=== PATIENT | female | born 1970 | race Caucasian/White ===

== ENCOUNTER 2020-02-26 13:47 | Outpatient (CLI) | payer OTHER, SELFPAY ==
--- NOTE | ~2020-02-26 | US_ITS ---
EXAMINATION: US thyroid DATE: 02/26/2020 14:13 INDICATION: Thyroid cancer. TECHNIQUE: Multiple ultrasound images of the thyroid were obtained. COMPARISON: Ultrasound 05/26/2018 FINDINGS: The thyroid is absent. No lymphadenopathy is identified. IMPRESSION: 1. Absent thyroid. No lymphadenopathy. Reviewed, dictated and finalized at location A.
[2020-02-26 15:20] LABS: Albumin Level 3.9 g/dL (3.5-5.1); Blood Urea Nitrogen 18 mg/dL (7-17); Calcium 10.4 mg/dL (8.4-10.2); Carbon Dioxide 33 mmol/L (22-30); Chloride 100 mmol/L (98-107); Estimated Glomerular Filt Rate 43; Glucose 86 mg/dL (65-105); Magnesium 1.8 mg/dL (1.6-2.3); Phosphorus 3.4 mg/dL (2.5-4.5); Potassium 3.6 mmol/L (3.4-5.0); Sodium 136 mmol/L (137-145)
[2020-02-26 16:07] LABS: Free T4 Free Thyroxine 1.35 ng/mL (0.78-2.19); Vitamin D 25 Hydroxy 79.8 ng/mL
[2020-02-28 01:58] LABS: Thyroglobulin <0.1 ng/mL (2.8-40.9); Thyroglobulin Antibodies <1 IU/mL (<=1)
[2020-02-28 05:04] LABS: Triiodothyronine T3 Free 2.5 pg/mL (2.3-4.2)
== END 2020-02-26 13:48 | disposition home or self-care (01) ==
PROVIDERS: PCP Internal Medicine; Visit Provider Internal Medicine Endocrinology, Diabetes & Metabolism
DX: C73 Malignant neoplasm of thyroid gland (principal); E83.51 Hypocalcemia; E20.9 Hypoparathyroidism, unspecified; E04.9 Nontoxic goiter, unspecified
CPT/HCPCS: 36415; 76536; 80069; 82306; 83735; 84432; 84439; 84443; 84481; 86800

== ENCOUNTER 2020-09-30 16:54 | Outpatient (CLI) | payer OTHER, SELFPAY ==
[2020-09-30 17:26] LABS: Anion Gap 6 mmol/L (8-16); Blood Urea Nitrogen 29 mg/dL (7-17); Calcium 10.6 mg/dL (8.4-10.2); Carbon Dioxide 34 mmol/L (22-30); Chloride 99 mmol/L (98-107); Estimated Glomerular Filt Rate 47; Glucose 96 mg/dL (65-105); Potassium 3.7 mmol/L (3.4-5.0); Sodium 139 mmol/L (137-145)
[2020-09-30 17:58] LABS: Thyroid Stimulating Hormone 0.309 uIU/mL (0.465-4.680)
[2020-09-30 18:10] LABS: Free T4 Free Thyroxine 1.23 ng/mL (0.78-2.19); Vitamin D 25 Hydroxy 73.8 ng/mL
[2020-10-06 12:47] LABS: FSH 114.3 mIU/mL (***)
[2020-10-07 05:58] LABS: Calcium/Creatinine Ratio, Ur 189 mg/g creat (10-320); Urine Calcium, Random 9.2 mg/dL (***); Urine Creatinine, Random 49 mg/dL (20-275)
== END 2020-09-30 16:55 | disposition home or self-care (01) ==
LOC: ANHLAB 16:57
PROVIDERS: Referring Provider Obstetrics & Gynecology; Visit Provider Internal Medicine Endocrinology, Diabetes & Metabolism
DX: C73 Malignant neoplasm of thyroid gland (principal); E03.9 Hypothyroidism, unspecified; E20.8 Other hypoparathyroidism; E83.51 Hypocalcemia; Z78.0 Asymptomatic menopausal state
CPT/HCPCS: 36415; 80048; 82306; 82310; 82570; 82607; 82670; 83001; 84439; 84443

== ENCOUNTER 2020-11-22 08:59 | Outpatient (CLI) | payer OTHER, SELFPAY ==
[2020-11-22 09:25] LABS: Anion Gap 2 mmol/L (8-16); Blood Urea Nitrogen 24 mg/dL (7-17); Calcium 8.7 mg/dL (8.4-10.2); Carbon Dioxide 36 mmol/L (22-30); Chloride 101 mmol/L (98-107); Estimated Glomerular Filt Rate 52; Glucose 76 mg/dL (65-105); Potassium 3.8 mmol/L (3.4-5.0); Sodium 139 mmol/L (137-145)
[2020-11-22 09:54] LABS: Thyroid Stimulating Hormone 0.245 uIU/mL (0.465-4.680)
[2020-11-22 11:08] LABS: Free T4 Free Thyroxine 1.33 ng/mL (0.78-2.19)
== END 2020-11-22 09:00 | disposition home or self-care (01) ==
PROVIDERS: PCP Internal Medicine; Visit Provider Internal Medicine Endocrinology, Diabetes & Metabolism
DX: C73 Malignant neoplasm of thyroid gland (principal); E03.9 Hypothyroidism, unspecified; E20.8 Other hypoparathyroidism
CPT/HCPCS: 36415; 80048; 84439; 84443

== ENCOUNTER 2021-03-28 16:04 | Outpatient (CLI) | payer OTHER, SELFPAY ==
[2021-03-28 16:40] LABS: Anion Gap 7 mmol/L (8-16); Blood Urea Nitrogen 19 mg/dL (7-17); Calcium 9.2 mg/dL (8.4-10.2); Carbon Dioxide 30 mmol/L (22-30); Chloride 102 mmol/L (98-107); Estimated Glomerular Filt Rate 47; Glucose 107 mg/dL (65-105); Magnesium 1.6 mg/dL (1.6-2.3); Potassium 3.5 mmol/L (3.4-5.0); Sodium 139 mmol/L (137-145)
[2021-03-28 17:11] LABS: Thyroid Stimulating Hormone 0.205 uIU/mL (0.465-4.680)
[2021-03-28 17:42] LABS: Free T4 Free Thyroxine 1.35 ng/mL (0.78-2.19)
== END 2021-03-28 16:05 | disposition home or self-care (01) ==
LOC: ANHLAB 16:06
PROVIDERS: PCP Internal Medicine; Visit Provider Internal Medicine Endocrinology, Diabetes & Metabolism
DX: C73 Malignant neoplasm of thyroid gland (principal); E03.9 Hypothyroidism, unspecified; E20.8 Other hypoparathyroidism
CPT/HCPCS: 36415; 80048; 82306; 83735; 84439; 84443

== ENCOUNTER 2021-05-15 15:19 | Outpatient (CLI) | payer OTHER, SELFPAY ==
--- NOTE | ~2021-05-15 | MM_ITS ---
EXAMINATION: screening [facility] BI w brinda HISTORY: Screening mammogram TECHNIQUE: Craniocaudal and mediolateral oblique 3-D tomosynthesis images were obtained and synthetic 2-D images were generated. CAD analysis was submitted and interpreted. COMPARISON: 08/21/2019, 03/04/2017, 02/21/2017 BREAST PARENCHYMAL COMPOSITION: The breasts are heterogeneously dense, which may obscure small masses . FINDINGS: There is stable focal asymmetry in the upper outer quadrant of the right breast, consistent with a benign finding. There is no evidence of suspicious mass, calcification, or architectural dist ortion to suggest malignancy in either breast. There has been no suspicious interval change. IMPRESSION: 1. No mammographic evidence of malignancy. 2. Recommend routine screening mammography in one year. BI-RADS Category 2: Benign finding(s). Reviewed, dictated and finalized at location A.
== END 2021-05-15 15:20 | disposition home or self-care (01) ==
LOC: ANHIMG 15:42
PROVIDERS: PCP Internal Medicine; Visit Provider Obstetrics & Gynecology
DX: Z12.31 Encounter for screening mammogram for malignant neoplasm of breast (principal)
CPT/HCPCS: 77063; 77067

== ENCOUNTER 2021-07-01 13:18 | Outpatient (CLI) | payer OTHER, SELFPAY ==
[2021-07-01 13:57] LABS: Alanine Aminotransferase 19 U/L (4-35); Albumin Level 4.1 g/dL (3.5-5.1); Alkaline Phosphatase 52 U/L (38-126); Anion Gap 7 mmol/L (8-16); Aspartate Amino Transferase 26 U/L (14-36); Bilirubin,Total 0.4 mg/dL (0.2-1.3); Blood Urea Nitrogen 17 mg/dL (7-17); Calcium 9.1 mg/dL (8.4-10.2); Carbon Dioxide 29 mmol/L (22-30); Chloride 104 mmol/L (98-107); Estimated Glomerular Filt Rate 52; Glucose 107 mg/dL (65-110); Potassium 3.9 mmol/L (3.4-5.0); Sodium 140 mmol/L (137-145)
[2021-07-01 14:14] LABS: Free T4 Free Thyroxine 1.05 ng/mL (0.78-2.19)
== END 2021-07-01 13:19 | disposition home or self-care (01) ==
PROVIDERS: PCP Internal Medicine; Visit Provider Internal Medicine Endocrinology, Diabetes & Metabolism
DX: C73 Malignant neoplasm of thyroid gland (principal); E03.9 Hypothyroidism, unspecified; E20.8 Other hypoparathyroidism; Z78.0 Asymptomatic menopausal state
CPT/HCPCS: 36415; 80053; 84439; 84443

== ENCOUNTER 2021-09-22 14:16 | Outpatient (CLI) | payer OTHER, SELFPAY ==
[2021-09-22 15:21] LABS: Free T4 Free Thyroxine 1.13 ng/mL (0.78-2.19)
== END 2021-09-22 14:17 | disposition home or self-care (01) ==
LOC: ANHLAB 14:18
PROVIDERS: PCP Internal Medicine; Visit Provider Internal Medicine Endocrinology, Diabetes & Metabolism
DX: C73 Malignant neoplasm of thyroid gland (principal); E03.9 Hypothyroidism, unspecified
CPT/HCPCS: 36415; 84439; 84443

== ENCOUNTER 2021-10-11 07:27 | Outpatient (CLI) | payer OTHER, SELFPAY ==
[2021-10-11 07:47] LABS: Basophils Absolute Auto 0.1 K/mm3 (0.0-0.1); Basophils Percent Auto 1.5 % (0.2-1.2); Eosinophils Absolute Auto 0.3 K/mm3 (0-0.3); Eosinophils Percent Auto 7.4 % (0-4.4); Hematocrit 42.8 % (37.0-47.0); Hemoglobin 14.5 g/dL (12.0-15.0); Lymphocytes Absolute Auto 1.48 K/mm3 (0.9-3.2); Lymphocytes Percent Auto 36.6 % (18.3-44.2); Mean Corpuscular HGB Conc 33.9 g/dl (32-36); Mean Corpuscular Hemoglobin 31.4 pg (26-34); Mean Corpuscular Volume 92.6 fl (80-100); Mean Platelet Volume 9.4 fl (7.4-10.4); Monocytes Absolute Auto 0.4 K/mm3 (0.1-0.6); Monocytes Percent Auto 8.7 % (2.6-8.5); Neutrophils Absolute Auto 1.9 K/mm3 (1.3-6.7); Neutrophils Percent Auto 45.8 % (45.5-73.1); Platelet Count Result 277 k/mm3 (150-375); Red Blood Count 4.62 M/mm3 (4.2-5.4); Red Cell Distribution Width 12.1 % (11.5-14.5)
[2021-10-11 08:01] LABS: Alanine Aminotransferase 20 U/L (4-35); Albumin Level 4.2 g/dL (3.5-5.1); Alkaline Phosphatase 48 U/L (38-126); Anion Gap 6 mmol/L (8-16); Aspartate Amino Transferase 30 U/L (14-36); Bilirubin,Total 0.5 mg/dL (0.2-1.3); Blood Urea Nitrogen 13 mg/dL (7-17); Calcium 8.6 mg/dL (8.4-10.2); Carbon Dioxide 32 mmol/L (22-30); Chloride 102 mmol/L (98-107); Cholesterol 234 mg/dL (0-200); Estimated Glomerular Filt Rate 52; Glucose 97 mg/dL (65-110); HDL Direct 57 mg/dL; Potassium 4.4 mmol/L (3.4-5.0); Sodium 140 mmol/L (137-145); Triglycerides 50 mg/dL (<150)
[2021-10-11 08:12] LABS: LDL Cholesterol Direct 150 mg/dL
[2021-10-11 08:45] LABS: Hemoglobin A1C 5.2 % (<5.7)
[2021-10-11 11:30] LABS: Thyroid Stimulating Hormone Reflex 0.336 uIU/mL (0.465-4.68)
[2021-10-11 22:04] LABS: Free T4 Free Thyroxine Reflex 1.23 ng/dL (0.78-2.19)
[2021-10-12 00:26] LABS: Total Triiodothyronine (T3) 1.41 NG/ML (0.97-1.69)
== END 2021-10-11 07:28 | disposition home or self-care (01) ==
LOC: ANHLAB 07:29
PROVIDERS: PCP Internal Medicine; Visit Provider Obstetrics & Gynecology
DX: Z00.00 Encounter for general adult medical examination without abnormal findings (principal); Z12.31 Encounter for screening mammogram for malignant neoplasm of breast
CPT/HCPCS: 36415; 80053; 80061; 82306; 82607; 83036; 84439; 84443; 84480; 85025

== ENCOUNTER 2021-11-28 17:18 | Outpatient (CLI) | payer OTHER, SELFPAY ==
[2021-11-28 18:29] LABS: Anion Gap 9 mmol/L (8-16); Blood Urea Nitrogen 20 mg/dL (7-17); Calcium 8.4 mg/dL (8.4-10.2); Carbon Dioxide 30 mmol/L (22-30); Chloride 99 mmol/L (98-107); Estimated Glomerular Filt Rate 52; Glucose 114 mg/dL (65-110); Potassium 3.7 mmol/L (3.4-5.0); Sodium 138 mmol/L (137-145)
[2021-11-28 18:33] LABS: Magnesium 1.9 mg/dL (1.6-2.3)
[2021-11-28 19:12] LABS: Free T4 Free Thyroxine 1.17 ng/mL (0.78-2.19)
[2021-11-28 19:54] LABS: Total Triiodothyronine (T3) 0.97 NG/ML (0.97-1.69)
== END 2021-11-28 17:19 | disposition home or self-care (01) ==
PROVIDERS: PCP Internal Medicine; Referring Provider Obstetrics & Gynecology; Visit Provider Internal Medicine Endocrinology, Diabetes & Metabolism
DX: C73 Malignant neoplasm of thyroid gland (principal); R74.9 Abnormal serum enzyme level, unspecified; E03.9 Hypothyroidism, unspecified; E20.8 Other hypoparathyroidism; M62.89 Other specified disorders of muscle
CPT/HCPCS: 36415; 80048; 83735; 84439; 84443; 84480

== ENCOUNTER 2022-01-14 20:09 | Emergency (ER) | payer OTHER, SELFPAY ==
--- NOTE | ~2022-01-14 | XR_ITS ---
EXAMINATION: XR ankle LT min 3V DATE: 01/14/2022 20:32 INDICATION: Left ankle pain TECHNIQUE: Anteroposterior, lateral, mortise, and additional oblique view of the ankle were obtained. COMPARISON: None. FINDINGS: Ankle soft tissue swelling is present. There is no fracture, dislocation, or subluxation. IMPRESSION: 1. Ankle soft tissue swelling without acute osseous abnormality. Reviewed, dictated and finalized at location F. R BENDER
[2022-01-14 20:14] VITALS: BP 142/98; PULSE 68; RESP 22; TEMP 36.5; O2SAT 100
[2022-01-14] MEDS: HYDROcodone/acetaminophen (*CRX) 5-325 MG TABLET 1 TAB PO (20:20)
--- NOTE | 2022-01-14 20:26 | ED.LOWEXIN ---
HPI - Extremity Injury (Lower) General Chief Complaint: Extremity Injury, Lower Stated Complaint: left ankle injury-twisted ankle Time Seen by Provider: 01/14/22 20:16 History of Present Illness HPI Narrative: Patient is a 51-year-old female who presents ER with left ankle pain. Tripped over the lip of a rug. Began having some mild pain was still able to walk. Pain located by the lateral malleolus. No 50 minutes pain became currently intense and cannot walk. She reports little tingling in her toes but has range of motion. She did not fall strike her head. No additional concerns. Related Data Home Medications Medication Instructions Recorded Confirmed magnesium oxide 250 mg PO TID tablet 08/22/20 11/06/21 mecobalamin (vitamin B12) 1,000 2,500 mcg PO DAILY tablet 08/22/20 11/06/21 mcg chewable tablet rhubarb root extract 4 mg tablet mg PO 03/23/21 11/06/21 biotin 1 mg tablet 1 mg PO DAILY 11/06/21 11/06/21 calcium carbonate 600 mg-vitamin 1 tablet PO DAILY tablet 11/06/21 11/06/21 D3 5 mcg (200 unit) tablet Allergies Allergy/AdvReac Type Severity Reaction Status Date / Time No Known Allergies Allergy Unverified 01/30/19 07:47 Review of Systems Musculoskeletal: Musculoskeletal: Reports arthralgias, Reports joint swelling and Denies muscle cramps Neurologic: Denies syncope, Denies focal weakness and Reports numbness PMFSH Past Medical History Medical History (Updated 01/14/22 @ 21:14 by Gerald Malloy MD) Ovarian cyst Thyroid cancer Surgical History Surgical History H/O prior ablation treatment H/O thyroidectomy History of appendectomy Hx of tonsillectomy Family History Family History Mother Family history of thyroid disease Family history of obesity Sibling Family history of thyroid disease Family history of diabetes mellitus in first degree relative Diabetes mellitus Father Hypertension Social History Social History Smoking status: Never smoker Second hand tobacco smoke exposure: No Alcohol intake: never Exam Narrative: GENERAL: Well-appearing, well-nourished, and in no acute distress. HEAD: Normocephalic, atraumatic. HEART: Regular rate and rhythm. Normal peripheral pulses. EXTREMITIES: Normal range of motion. No edema. No palpation of the lateral malleolus of the left ankle. No swelling or deformity. No tenderness over the Achilles tendon which is intact. No fifth metatarsal tenderness or swelling. Normal dorsalis pedis pulses and posterior tibial pulses. Sharp touch intact in left foot. SKIN: Warm, dry, no rash. NEURO: No focal deficits. Alert and oriented x3. PSYCH: Normal mood and affect. Course Course Emergency Course: Patient informed of results. Nurse will apply an See wrap. Crutch training will be provided. Discharge home. Vital Signs Vital signs: Vital Signs Temperature 97.7 F 01/14/22 20:14 Pulse Rate 68 01/14/22 20:14 Respiratory Rate 22 H 01/14/22 20:14 Blood Pressure 142/98 H 01/14/22 20:14 Pulse Oximetry 100 01/14/22 20:14 Temperature 97.7 F 01/14/22 20:14 Pulse Rate 68 01/14/22 20:14 Respiratory Rate 22 H 01/14/22 20:14 Blood Pressure 142/98 H 01/14/22 20:14 Pulse Oximetry 100 01/14/22 20:14 MDM - Extremity Injury (Lower) Imaging Data Radiologist's impression: ITS Impressions Ankle X-Ray 01/14/22 20:42 IMPRESSION: 1. Ankle soft tissue swelling without acute osseous abnormality. Discharge Plan Discharge Clinical Impression: Ankle sprain Patient Disposition: Home, Self-Care Condition: Stable Instructions: Ankle Sprain (ED), P.R.I.C.E. Treatment (ED) Additional Instructions: Return the ER if you suffer new injury, you have chest pain or shortness of breath, you have a red/swollen leg, you have addition
[2022-01-14 21:29] VITALS: BP 132/88; PULSE 77; RESP 18; O2SAT 98
== END 2022-01-14 21:30 | disposition home or self-care (01) ==
LOC: ANHED 21:15
PROVIDERS: Emergency Provider Emergency Medicine; PCP Internal Medicine
DX: S93.402A Sprain of unspecified ligament of left ankle, initial encounter (principal); Z85.850 Personal history of malignant neoplasm of thyroid; E89.0 Postprocedural hypothyroidism; W22.8XXA Striking against or struck by other objects, initial encounter
CPT/HCPCS: 73610; 99283; A9270

== ENCOUNTER → 2022-04-16 12:49 | Outpatient (CLI) | payer OTHER, SELFPAY ==
--- NOTE | ~2022-04-16 | US_ITS ---
EXAMINATION: US transvaginal DATE: 04/16/2022 13:42 INDICATION: Secondary ovarian failure Comparison:No prior studies for comparison. TECHNIQUE: Multiple transabdominal and endovaginal sonographic images of the pelvis performed. FINDINGS: The uterus measures 6.8 x 3.9 x 5.7 cm. There are multiple uterine fibroids in the myometri um with associated calcifications. Largest discrete fibroid measures 2 cm greatest dimension. The end ometrial complex measures 6 mm. The right ovary measures 1.3 x 1 x 1.6 cm and the left ovary measures 1.9 x 1.7 x 2.3 cm. There are small follicles in each ovary. Normal doppler signal in both ovaries. There is no free fluid in the pelvis. There are no abnormal masses seen on either side. IMPRESSION: 1. Uterine fibroids, largest measuring up to 2 cm maximum dimension. Reviewed, dictated and finalized at location A.
== END ==
PROVIDERS: PCP Internal Medicine
DX: E28.39 Other primary ovarian failure (principal); N95.9 Unspecified menopausal and perimenopausal disorder; N85.2 Hypertrophy of uterus; D25.9 Leiomyoma of uterus, unspecified
CPT/HCPCS: 76830

== ENCOUNTER 2023-02-21 07:36 | Outpatient (CLI) | payer OTHER, SELFPAY ==
--- NOTE | ~2023-02-21 | MM_ITS ---
EXAMINATION: MM screening [facility] BI w brinda HISTORY: Screening TECHNIQUE: Craniocaudal and mediolateral oblique 3-D tomosynthesis images were obtained and synthetic 2-D images were generated. CAD analysis was submitted and interpreted. COMPARISON: Comparison to multiple prior studies sequentially, with oldest reviewed study dated 01/26. BREAST PARENCHYMAL COMPOSITION: The breasts are heterogeneously dense, which may obscure small masses . FINDINGS: There is no evidence of suspicious mass, calcification, or architectural distortion to sugg est malignancy in either breast. There has been no suspicious interval change. IMPRESSION: 1. No mammographic evidence of malignancy. 2. Recommend routine screening mammography in one year. BI-RADS Category 1: Negative Reviewed, dictated and finalized at location A.
== END 2023-02-21 07:37 | disposition home or self-care (01) ==
LOC: ANHIMG 07:39
PROVIDERS: PCP Family Medicine; Visit Provider Obstetrics & Gynecology
DX: Z12.31 Encounter for screening mammogram for malignant neoplasm of breast (principal)
CPT/HCPCS: 77063; 77067

== ENCOUNTER 2023-09-13 00:38 | Day surgery (SDC) | payer OTHER, SELFPAY ==
[2023-09-04 13:38] VITALS: BMI 25.7
--- NOTE | 2023-09-11 15:48 | P.HP_ITS ---
History of Present Illness History of Present Illness Consent: Risks, benefits, and alternatives have been discussed and questions answered. Patient agrees to proceed with procedure. Chief complaint: hx colon polyps Narrative: Jyoti Burnham is a 52 year old female referred for colon cancer screen. She has a history of polyps, 2 polyps were removed 4 years ago Review of Systems Review of Systems: All systems reviewed & are unremarkable except as noted in HPI and below PMFSH Past Medical History Medical History Acute sinusitis Breast mass, right Ovarian cyst Renal insufficiency Thyroid cancer URI (upper respiratory infection) Surgical History Surgical History H/O prior ablation treatment H/O thyroidectomy History of appendectomy Hx of tonsillectomy Family History Family History Mother Family history of thyroid disease Family history of obesity Sibling Family history of thyroid disease Family history of diabetes mellitus in first degree relative Diabetes mellitus Father Hypertension Social History Social History Smoking status: Never smoker Second hand tobacco smoke exposure: No Alcohol intake: never Substance use: never Living arrangements: with family Occupation/Education: occupation 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 Meds Home Medications and Allergies Home Medications Medication Instructions Recorded Confirmed Type calcium carbonate 600 mg-vitamin 1 tablet PO DAILY 11/06/21 09/04/23 History D3 5 mcg (200 unit) tablet Synthroid 100 mcg tablet See Rx Instructions .Route 05/28/22 09/04/23 Rx (levothyroxine) .COMPLEX #90 tabs albuterol sulfate 90 mcg/actuation 1 - 2 inh inhalation Q4-6H PRN 11/09/22 09/04/23 Rx aerosol inhaler shortness of breath or wheezing #8.5 grams medroxyprogesterone 09/04/23 History calcitriol 0.25 mcg capsule 0.25 mcg PO DAILY #60 caps 09/10/23 Rx (Rocaltrol) Allergies Allergy/AdvReac Type Severity Reaction Status Date / Time No Known Allergies Allergy Verified 09/13/23 06:17 Exam Resp: Auscultation: clear to auscultation bilaterally Cardio: Rate: regular rate Rhythm: regular rhythm GI: GI Palp: Yes Soft to palpation and No Tenderness to palpation present (GI) Assessment and Plan Assessment and plan (1) Colon cancer screening: Code(s): Z12.11 - Encounter for screening for malignant neoplasm of colon Status: Acute Assessment and Plan: Colonoscopy with possible biopsy or polypectomy or cautery or injection of substances.
[2023-09-13 06:19] VITALS: BP 127/67; PULSE 69; RESP 18; TEMP 36.3; O2SAT 100; BMI 25.1
[2023-09-13] MEDS: LACTATED RINGERS 1,000 ML 150 ML IV CONT (06:22)
--- NOTE | 2023-09-13 06:59 | WPDANESEPPF ---
Anes - Initial Pre Proc Eval Procedure: Operation Date: 09/13/23 07:30 Proposed Procedures p Colonoscopy - Reji Becerra MD Date/Time: 09/13/23 06:59 Surgeon: Reji Becerra MD Pre Op Diagnosis: hx colon polyps Patient Data Age: 52 Gender: F Height: 1.68 m Weight: 70.7 kg Last Vital Signs Temp 97.3 F L 09/13/23 06:19 Pulse 69 09/13/23 06:19 Resp 18 09/13/23 06:19 BP 127/67 09/13/23 06:19 Pulse Ox 100 09/13/23 06:19 O2 Del Method Room Air 09/13/23 06:19 Allergies Allergy/AdvReac Type Severity Reaction Status Date / Time No Known Allergies Allergy Verified 09/13/23 06:17 Home Medications Medication Instructions Recorded Confirmed Type calcium carbonate 600 mg-vitamin 1 tablet PO DAILY 11/06/21 09/04/23 History D3 5 mcg (200 unit) tablet Synthroid 100 mcg tablet See Rx Instructions .Route 05/28/22 09/04/23 Rx (levothyroxine) .COMPLEX #90 tabs albuterol sulfate 90 mcg/actuation 1 - 2 inh inhalation Q4-6H PRN 11/09/22 09/04/23 Rx aerosol inhaler shortness of breath or wheezing #8.5 grams medroxyprogesterone 09/04/23 History calcitriol 0.25 mcg capsule 0.25 mcg PO DAILY #60 caps 09/10/23 Rx (Rocaltrol) Patient hx anesthesia problems: none Family hx anesthesia problems: none Results Review: All pre-operative results and documents have been reviewed as part of the pre-operative evaluation. [facility] Past Medical History Medical History (Updated 09/11/23 @ 15:48 by Reji Becerra MD) Acute sinusitis Breast mass, right Ovarian cyst Renal insufficiency Thyroid cancer URI (upper respiratory infection) Surgical History Surgical History H/O prior ablation treatment H/O thyroidectomy History of appendectomy Hx of tonsillectomy Family History Family History Mother Family history of thyroid disease Family history of obesity Sibling Family history of thyroid disease Family history of diabetes mellitus in first degree relative Diabetes mellitus Father Hypertension Social History Social History (Updated 10/10/22 @ 14:07 by Guillermina Wellington [facility]) Smoking status: Never smoker Second hand tobacco smoke exposure: No Alcohol intake: never Substance use: never Living arrangements: with family Occupation/Education: occupation 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 Informed Consent: The patient's anesthetic plan and its attendant risks and benefits were discussed with the patient/family/POA. Questions were solicited and answers provided to the satisfaction of the patient/family/POA.
[2023-09-13 07:45] VITALS: BP 104/60; PULSE 62; RESP 28; O2SAT 100
[2023-09-13 07:55] VITALS: BP 110/63; PULSE 63; RESP 19; O2SAT 98
[2023-09-13 08:05] VITALS: BP 108/73; PULSE 61; RESP 21; O2SAT 100
== END 2023-09-13 08:13 | disposition home or self-care (01) ==
PROVIDERS: PCP Family Medicine; Visit Provider Internal Medicine Gastroenterology
PROC: 0DJD8ZZ Inspection of Lower Intestinal Tract, Via Natural or Artificial Opening Endoscopic (ICD-10-PCS; CPT 45378; principal; 2023-09-13 07:30)
DX: Z12.11 Encounter for screening for malignant neoplasm of colon (principal); Z86.010 Personal history of colon polyps; E89.0 Postprocedural hypothyroidism; Z79.51 Long term (current) use of inhaled steroids; Z85.850 Personal history of malignant neoplasm of thyroid
CPT/HCPCS: 45378; J2001; J2704; J7120

== ENCOUNTER 2023-10-22 15:04 | Outpatient (CLI) | payer OTHER, SELFPAY ==
[2023-10-22 15:45] LABS: Alanine Aminotransferase 15 U/L (6-35); Albumin Level 4.4 g/dL (3.5-5.1); Alkaline Phosphatase 67 U/L (38-126); Anion Gap 12 mmol/L (8-16); Aspartate Amino Transferase 24 U/L (14-36); Bilirubin,Total 0.5 mg/dL (0.2-1.3); Blood Urea Nitrogen 24 mg/dL (7-17); Calcium 7.7 mg/dL (8.4-10.2); Carbon Dioxide 25 mmol/L (22-30); Chloride 100 mmol/L (98-107); Estimated Glomerular Filt Rate > 60; Glucose 91 mg/dL (65-110); Potassium 3.7 mmol/L (3.4-5.0); Sodium 137 mmol/L (137-145)
[2023-10-22 15:57] LABS: Parathyroid Intact 11.6 pg/mL (7.5-53.5)
[2023-10-22 16:16] LABS: Thyroid Stimulating Hormone 0.017 uIU/mL (0.465-4.680)
[2023-10-22 18:12] LABS: Free T4 Free Thyroxine 0.66 ng/mL (0.78-2.19); Vitamin D 25 Hydroxy 76.5 ng/mL
[2023-10-25 16:17] LABS: Ionized Calcium 4.4 mg/dL (4.7-5.5)
[2023-10-27 04:25] LABS: Thyroglobulin <0.1 ng/mL (2.8-40.9); Thyroglobulin Antibodies <1 IU/mL (<=1)
== END 2023-10-22 15:05 | disposition home or self-care (01) ==
PROVIDERS: PCP Family Medicine; Visit Provider Internal Medicine
DX: E20.9 Hypoparathyroidism, unspecified (principal); C73 Malignant neoplasm of thyroid gland; E03.9 Hypothyroidism, unspecified
CPT/HCPCS: 36415; 80053; 82306; 82330; 83970; 84432; 84439; 84443; 86800

== ENCOUNTER 2023-10-31 09:06 | Outpatient (CLI) | payer OTHER, SELFPAY ==
--- NOTE | ~2023-10-31 | US_ITS ---
EXAMINATION: US thyroid DATE: 10/31/2023 09:33 INDICATION: Thyroid cancer. TECHNIQUE: Multiple ultrasound images of the thyroid were obtained. COMPARISON: Ultrasound 02/26/2020 FINDINGS: The thyroid is absent. There is no lymphadenopathy. IMPRESSION: 1. Absent thyroid. No lymphadenopathy. Reviewed, dictated and finalized at location A. ADJUSTER
== END 2023-10-31 09:07 | disposition home or self-care (01) ==
LOC: ANHIMG 09:08
PROVIDERS: PCP Family Medicine; Visit Provider Internal Medicine
DX: C73 Malignant neoplasm of thyroid gland (principal); E03.9 Hypothyroidism, unspecified; E20.9 Hypoparathyroidism, unspecified
CPT/HCPCS: 76536

== ENCOUNTER 2024-12-17 13:41 | Emergency (ER) | payer OTHER, SELFPAY ==
--- NOTE | ~2024-12-17 | CT_ITS ---
EXAMINATION: CTA BRAIN/CAROTID DATE: 12/17/2024 14:37 INDICATION: Injured ischemic episode with altered mental status TECHNIQUE: Computed tomographic angiography (CTA) of the head and neck was performed with 100 mL Omni paque-350 intravenous contrast. Multiplanar reconstructions and maximum intensity projection 3D-recon structions of the carotid arteries and of the intracranial arteries were created by the technologist on a separate workstation. Precontrast CT of the head was also obtained. Automated exposure control and iterative reconstruction technique were employed.The dose-length product was 1623.24 mGy-cm. COMPARISON: None. FINDINGS: Carotid arteries: Visualized aortic arch degree of vessel arising from the arch are normal in caliber with no evident a therosclerotic plaque or dissection. There is no evident atherosclerotic plaque with 0% stenosis of t he right and left carotid bulbs relative to normal distal artery lumen diameter (NASCET criteria). Vi sualized upper lungs are clear. Cervical soft tissues are unremarkable. Mild cervical spondylosis. Head: No acute intracranial hemorrhage, acute infarction or abnormal extra axial fluid collection. Ventricl es are normal and symmetric. No mass/mass effect. No abnormally enhancing brain lesions on the postco ntrast imaging. The orbits, paranasal sinuses and mastoid air cells are normal. Intracranial arteries Left vertebral artery is mildly dominant. Minimal amount of nonhemodynamically significant atheroscle rotic plaque at the left carotid siphon. There is no hemodynamically significant stenosis in the vert ebral, basilar and internal carotid arteries. There are no aneurysms identified. Both A1 and P1 segm ents are patent. Cerebral arterial arborization appears symmetric. Is also a patent anterior communi cating artery. IMPRESSION: 1. No evident atherosclerotic plaque with 0% stenosis of the right and left carotid bulbs relative to normal distal artery lumen diameter (NASCET criteria). 2. Unremarkable cerebral CT angiogram with no hemodynamically significant stenosis, aneurysm or throm bosis.. 3. Normal aging brain. No acute intracranial process or abnormally enhancing brain lesions. Reviewed, dictated and finalized at location B. [facility] HAND IMPRESSION: 1. No evident atherosclerotic plaque with 0% stenosis of the right and left car otid bulbs relative to normal distal artery lumen diameter (NASCET criteria). 2. Unremarkable cerebral CT angiogram with no hemodynamically significant steno sis, aneurysm or thrombosis.. 3. Normal aging brain. No acute intracranial process or abnormally enhancing br ain lesions.
[2024-12-17 13:48] VITALS: BP 157/83; PULSE 76; RESP 19; TEMP 36.4; O2SAT 100
--- NOTE | 2024-12-17 13:50 | ECG_ITS ---
Test Date: 2024-12-17 14:23:47 Measurements Intervals [place] Rate: 75 P: 69 NV: 130 QRS: 60 QRSD: 86 T: 36 QT: 416 QTc: 465 Interpretive Statements SINUS RHYTHM No previous ECG available for comparison Electronically Signed On 12-17-2024 15:20:57 DESIGN AGENT by Jasper Le M.D.
--- NOTE | 2024-12-17 13:51 | ED.GENADULT ---
HPI - General Adult General Chief complaint: Unspecified <Елена Oliva APRN - Last Filed: 12/17/24 13:55> Stated complaint: took a medicine at lunch, now groggy <Елена Oliva APRN - Last Filed: 12/17/24 13:55> Time Seen by Provider: 12/17/24 13:45 <Елена Oliva APRN - Last Filed: 12/17/24 13:55> Focused HPI: Patient is a 54-year-old female who presents to the ER with altered mental status. She reports she took some type of medication around 12pm in started experiencing symptoms approximately 30 minutes later. At the time of exam difficulty with expressive aphasia. She reports she sees a functional medicine doctor manages her thyroid. Patient reports she had thyroid cancer in 2008 and reports she had a total thyroidectomy. She reports she is supposed to take medicine and morning and at lunchtime but she thinks she may have mixed up the medication. Patient does not usually have difficulty recalling events, per her co-worker, but is having difficulty at the time of exam. She reports she is feeling ?groggy. Patient denies chest pain, abdominal pain, shortness of breath, or recent fevers. She reports she last had her thyroid levels checked in November 2024. GENERAL: Well-appearing, well-nourished, and in mild distress. HEAD: Normocephalic, atraumatic. CHEST: Clear to auscultation. ?No respiratory distress. HEART: Regular rate and rhythm.? NEURO: ?Alert and oriented x3. Cranial nerves intact. Patient screened in triage and initial orders placed.? ?Additional care and disposition to be based upon?diagnostic testing and treatment. <Елена Oliva APRN - Last Filed: 12/17/24 13:55> History of Present Illness HPI narrative: Agree with HPI. Sudden onset slurred speech and poor balance after taking medication today and yesterday. No history of CVA. Symptoms resolved at this time. Patient reports she is feeling more awake. She believes that she accidentally ingested her melatonin. She called her who indicates that her melatonin is mixed in with her daily meds. <Gerald Malloy MD - Last Filed: 12/17/24 18:50> Related Data Home medications: Home Medications ?Medication ?Instructions ?Recorded ?Confirmed ?Last Taken ?Type calcium 600 mg (as 1 tablet PO DAILY 11/06/21 12/04/24 09/12/23 History carbonate)-vitamin D3 5 mcg (200 unit) tablet medroxyprogesterone 09/04/23 12/04/24 09/12/23 History DHEA SR. BYMOUTH 10/16/23 12/04/24 Unknown History MAGNESIUM BYMOUTH 10/16/23 12/04/24 Unknown History citalopram 20 mg tablet 20 mg PO DAILY 10/16/23 12/04/24 Unknown History progesterone micronized 100 mg 100 mg PO QAM 10/16/23 12/04/24 Unknown History capsule progesterone micronized 200 mg 200 mg PO QHS 10/16/23 12/04/24 Unknown History capsule calcitriol 0.25 mcg capsule 0.25 mcg PO DAILY 12/04/24 12/04/24 Unknown History <Елена Oliva, CLIENT CARE CONSULTANT - Last Filed: 12/17/24 13:55> Allergies/adverse reactions: Allergies Allergy/AdvReac Type Severity Reaction Status Date / Time No Known Allergies Allergy Verified 12/04/24 13:34 <Елена Oliva, CLIENT CARE CONSULTANT - Last Filed: 12/17/24 13:55> Review of Systems Review of Systems: All systems reviewed & are unremarkable except as noted in HPI and below <Gerald Malloy MD - Last Filed: 12/17/24 18:50> Constitutional: Constitutional: Reports no additional constitutional complaints <Gerald Malloy MD - Last Filed: 12/17/24 18:50> ENT: Reports system reviewed and no additional complaints, except as documented <Gerald Malloy MD - Last Filed: 12/17/24 18:50> Cardiovascular: Cardiovascular: Reports no additional cardiovascular complaints <Gerald Malloy MD - Last Filed: 12/17/24 18:50> Respiratory: Respiratory: Reports no additional respiratory complaints <Gerald Malloy MD - Last Filed: 12/17/24 18:50> Musculoskeletal: Musculoskeletal: Reports no additional musculoskeletal complaints <Gerald Malloy MD - Last Filed: 12/17/24 18:50> Neurologic: Denies focal weakness, Denies numbness, Denies paresthesias and Reports weakness <Gerald Malloy MD - Last Filed: 12/17/24 18:50> PMFSH Past Medical History Medical History: Medical History URI (upper respiratory infection) Acute sinusitis Renal insufficiency Breast mass, right Ovarian cyst Thyroid cancer <Елена Oliva APRN - Last Filed: 12/17/24 13:55> Surgical History Surgical History: Surgical History Hx of tonsillectomy History of appendectomy H/O thyroidectomy H/O prior ablation treatment <Елена Oliva APRN - Last Filed: 12/17/24 13:55> Family History Family History: Family History Mother Family history of thyroid disease Family history of obesity Sibling Family history of thyroid disease Family history of diabetes mellitus in first degree relative Diabetes mellitus Father Hypertension <Елена Oliva APRN - Last Filed: 12/17/24 13:55> Social History Social History: Social History Smoking status: Never smoker Second hand tobacco smoke exposure: No Alcohol intake: never Substance use: never Living arrangements: with family Occupation/Education: occupation 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 HEAD: Normocephalic, atraumatic. ENT: Mucous membranes moist. CHEST: Clear to auscultation. No respiratory distress. HEART: Regular rate and rhythm. Normal peripheral pulses. ABDOMEN: Soft, nontender, nondistended. EXTREMITIES: Normal range of motion. No edema. SKIN: Warm, dry, no rash. NEURO: No focal deficits. See NIH stroke scale. Alert and oriented x3. PSYCH: Normal mood and affect. <Gerald Malloy MD - Last Filed: 12/17/24 18:50> Course Course Emergency Course: Patient asymptomatic. Informed of imaging and lab results which were reassuring. I do suspect patient likely had a medication reaction and not miss so a TIA but is recommend she follow-up with her PCP and also take baby aspirin in the interim. <Gerald Malloy MD - Last Filed: 12/17/24 18:50> Vital Signs Vital signs: Vital Signs Temperature 97.6 F 12/17/24 13:48 Pulse Rate 76 12/17/24 13:48 Respiratory Rate 19 12/17/24 13:48 Blood Pressure 157/83 H 12/17/24 13:48 Pulse Oximetry 100 12/17/24 13:48 Oxygen Delivery Room Air 12/17/24 13:48 Temperature 97.6 F 12/17/24 13:48 Pulse Rate 64 12/17/24 15:16 Respiratory Rate 18 12/17/24 15:16 Blood Pressure 130/70 12/17/24 15:16 Pulse Oximetry 100 12/17/24 15:16 Oxygen Delivery Room Air 12/17/24 13:48 <Елена Oliva, CLIENT CARE CONSULTANT - Last Filed: 12/17/24 13:55> Vital Signs Temperature 97.6 F 12/17/24 13:48 Pulse Rate 76 12/17/24 13:48 Respiratory Rate 19 12/17/24 13:48 Blood Pressure 157/83 H 12/17/24 13:48 Pulse Oximetry 100 12/17/24 13:48 Oxygen Delivery Room Air 12/17/24 13:48 Temperature 97.6 F 12/17/24 13:48 Pulse Rate 64 12/17/24 15:16 Respiratory Rate 18 12/17/24 15:16 Blood Pressure 130/70 12/17/24 15:16 Pulse Oximetry 100 12/17/24 15:16 Oxygen Delivery Room Air 12/17/24 13:48 <Gerald Malloy MD - Last Filed: 12/17/24 18:50> Medical Decision Making Vital Signs Vital Signs: Vital Signs Temperature 97.6 F 12/17/24 13:48 Pulse Rate 76 12/17/24 13:48 Respiratory Rate 19 12/17/24 13:48 Blood Pressure 157/83 H 12/17/24 13:48 Pulse Oximetry 100 12/17/24 13:48 Oxygen Delivery Room Air 12/17/24 13:48 Temperature 97.6 F 12/17/24 13:48 Pulse Rate 64 12/17/24 15:16 Respiratory Rate 18 12/17/24 15:16 Blood Pressure 130/70 12/17/24 15:16 Pulse Oximetry 100 12/17/24 15:16 Oxygen Delivery Room Air 12/17/24 13:48 <Елена Oliva, CLIENT CARE CONSULTANT - Last Filed: 12/17/24 13:55> Vital Signs Temperature 97.6 F 12/17/24 13:48 Pulse Rate 76 12/17/24 13:48 Respiratory Rate 19 12/17/24 13:48 Blood Pressure 157/83 H 12/17/24 13:48 Pulse Oximetry 100 12/17/24 13:48 Oxygen Delivery Room Air 12/17/24 13:48 Temperature 97.6 F 12/17/24 13:48 Pulse Rate 64 12/17/24 15:16 Respiratory Rate 18 12/17/24 15:16 Blood Pressure 130/70 12/17/24 15:16 Pulse Oximetry 100 12/17/24 15:16 Oxygen Delivery Room Air 12/17/24 13:48 <Gerald Malloy MD - Last Filed: 12/17/24 18:50> Lab Data Result diagrams: 12/17/24 13:58 12/17/24 13:58 <Елена Oliva, CLIENT CARE CONSULTANT - Last Filed: 12/17/24 13:55> Labs: Lab Results 12/17/24 12/17/24 12/17/24 Range/Units 13:50 13:58 14:45 WBC 8.1 (4.5-10.0) K/mm3 RBC 4.92 (4.2-5.4) M/mm3 Hgb 15.0 (12.0-15.0) g/dL Hct 42.8 (37.0-47.0) % MCV 87.0 (80-100) fl MCH 30.5 (26-34) pg MCHC 35.0 (32-36) g/dl RDW 12.4 (11.5-14.5) % Plt Count 328 (150-375) k/mm3 MPV 9.7 (7.4-10.4) fl Immature Gran % (Auto) 0.1 (0-0.5) % Neut % (Auto) 63.3 (45.5-73.1) % Lymph % (Auto) 27.2 (18.3-44.2) % [place] % (Auto) 6.6 (2.6-8.5) % Eos % (Auto) 2.4 (0-4.4) % Baso % (Auto) 0.4 (0.2-1.2) % Lymph # (Auto) 2.19 (0.9-3.2) K/mm3 [place] # (Auto) 0.5 (0.1-0.6) K/mm3 Eos # (Auto) 0.2 (0-0.3) K/mm3 Baso # (Auto) 0.0 (0.0-0.1) K/mm3 Abs Immat Gran (auto) 0.01 (0.00-0.031) K/mm3 Absolute Neuts (auto) 5.1 (1.3-6.7) K/mm3 Absolute Nucleated RBC 0.000 (0.0-0.012) K/mm3 Nucleated RBC % 0.0 (0.0-0.2) % PT 14.9 H (11.1-14.7) Seconds INR 1.1 APTT 25.9 (22.3-36.8) Seconds Sodium 139 (137-145) mmol/L Potassium 3.3 L (3.4-5.0) mmol/L Chloride 107 (98-107) mmol/L Carbon Dioxide 23 (22-30) mmol/L Anion Gap 9 (4-12) mmol/L BUN 32 H (7-17) mg/dL Creatinine 0.85 (0.7-1.0) mg/dL Estim Creat Clear Calc 60 ml/min Estimated GFR > 60 (59 - ) Glucose 154 H (65-110) mg/dL POC Capillary Glucose 155 H (65-105) mg/dl Calcium 6.5 L (8.4-10.2) mg/dL Total Bilirubin 0.4 (0.2-1.3) mg/dL AST 21 (14-36) U/L ALT 15 (6-35) U/L Alkaline Phosphatase 73 (38-126) U/L Troponin I < 0.012 (0.000-0.034) ng/mL Total Protein 6.0 L (6.3-8.2) g/dL Albumin 3.6 (3.5-5.1) g/dL TSH (Reflex) < 0.015 L (0.465-4.68) uIU/mL Free T4 1.53 (0.78-2.19) ng/dL Total T3 1.78 H (0.97-1.69) NG/ML Urine Color Yellow (Yellow) Urine Appearance Clear (Clear) Urine pH 6.5 (5.0-9.0) Ur Specific [place] 1.031 (1.001-1.035) Urine Protein Negative (Negative) mg/dL Urine Glucose (UA) Negative (Negative) mg/dL Urine Ketones Negative (Negative) mg/dL Ur Blood (Man) Negative (Negative) Urine Nitrate Negative (Negative) Urine Bilirubin Negative (Negative) Urine Urobilinogen 0.2 (<2.0) mg/dL Add Ur Microanalysis Reviewed Leukocyte Esterase Rfl 1+ H (Negative) DARSHANA/UL Urine RBC 0-2 (0-2) /hpf Urine WBC 0-5 (0-3) /hpf Ur Squamous Epith Cells None seen (Few) /hpf Urine Bacteria None seen /hpf Urine Casts 0-2 Urine Opiates Screen Negative (Negative) Urine Methadone Screen Negative (Negative) Ur Barbiturates Screen Negative (Negative) Ur Phencyclidine Scrn Negative (Negative) Ur Amphetamine Screen Negative (Negative) U Benzodiazepines Scrn Negative (Negative) Urine Cocaine Screen Negative (Negative) U Cannabinoids Screen Negative (Negative) Ethyl Alcohol < 10 (<10) mg/dL <Елена Oliva, CLIENT CARE CONSULTANT - Last Filed: 12/17/24 13:55> Lab Results 12/17/24 12/17/24 12/17/24 Range/Units 13:50 13:58 14:45 WBC 8.1 (4.5-10.0) K/mm3 RBC 4.92 (4.2-5.4) M/mm3 Hgb 15.0 (12.0-15.0) g/dL Hct 42.8 (37.0-47.0) % MCV 87.0 (80-100) fl MCH 30.5 (26-34) pg MCHC 35.0 (32-36) g/dl RDW 12.4 (11.5-14.5) % Plt Count 328 (150-375) k/mm3 MPV 9.7 (7.4-10.4) fl Immature Gran % (Auto) 0.1 (0-0.5) % Neut % (Auto) 63.3 (45.5-73.1) % Lymph % (Auto) 27.2 (18.3-44.2) % [place] % (Auto) 6.6 (2.6-8.5) % Eos % (Auto) 2.4 (0-4.4) % Baso % (Auto) 0.4 (0.2-1.2) % Lymph # (Auto) 2.19 (0.9-3.2) K/mm3 [place] # (Auto) 0.5 (0.1-0.6) K/mm3 Eos # (Auto) 0.2 (0-0.3) K/mm3 Baso # (Auto) 0.0 (0.0-0.1) K/mm3 Abs Immat Gran (auto) 0.01 (0.00-0.031) K/mm3 Absolute Neuts (auto) 5.1 (1.3-6.7) K/mm3 Absolute Nucleated RBC 0.000 (0.0-0.012) K/mm3 Nucleated RBC % 0.0 (0.0-0.2) % PT 14.9 H (11.1-14.7) Seconds INR 1.1 APTT 25.9 (22.3-36.8) Seconds Sodium 139 (137-145) mmol/L Potassium 3.3 L (3.4-5.0) mmol/L Chloride 107 (98-107) mmol/L Carbon Dioxide 23 (22-30) mmol/L Anion Gap 9 (4-12) mmol/L BUN 32 H (7-17) mg/dL Creatinine 0.85 (0.7-1.0) mg/dL Estim Creat Clear Calc 60 ml/min Estimated GFR > 60 (59 - ) Glucose 154 H (65-110) mg/dL POC Capillary Glucose 155 H (65-105) mg/dl Calcium 6.5 L (8.4-10.2) mg/dL Total Bilirubin 0.4 (0.2-1.3) mg/dL AST 21 (14-36) U/L ALT 15 (6-35) U/L Alkaline Phosphatase 73 (38-126) U/L Troponin I < 0.012 (0.000-0.034) ng/mL Total Protein 6.0 L (6.3-8.2) g/dL Albumin 3.6 (3.5-5.1) g/dL TSH (Reflex) < 0.015 L (0.465-4.68) uIU/mL Free T4 1.53 (0.78-2.19) ng/dL Total T3 1.78 H (0.97-1.69) NG/ML Urine Color Yellow (Yellow) Urine Appearance Clear (Clear) Urine pH 6.5 (5.0-9.0) Ur Specific [place] 1.031 (1.001-1.035) Urine Protein Negative (Negative) mg/dL Urine Glucose (UA) Negative (Negative) mg/dL Urine Ketones Negative (Negative) mg/dL Ur Blood (Man) Negative (Negative) Urine Nitrate Negative (Negative) Urine Bilirubin Negative (Negative) Urine Urobilinogen 0.2 (<2.0) mg/dL Add Ur Microanalysis Reviewed Leukocyte Esterase Rfl 1+ H (Negative) DARSHANA/UL Urine RBC 0-2 (0-2) /hpf Urine WBC 0-5 (0-3) /hpf Ur Squamous Epith Cells None seen (Few) /hpf Urine Bacteria None seen /hpf Urine Casts 0-2 Urine Opiates Screen Negative (Negative) Urine Methadone Screen Negative (Negative) Ur Barbiturates Screen Negative (Negative) Ur Phencyclidine Scrn Negative (Negative) Ur Amphetamine Screen Negative (Negative) U Benzodiazepines Scrn Negative (Negative) Urine Cocaine Screen Negative (Negative) U Cannabinoids Screen Negative (Negative) Ethyl Alcohol < 10 (<10) mg/dL <Gerald Malloy MD - Last Filed: 12/17/24 18:50> Imaging Data Radiologist's impression: ITS Impressions Head/Neck CTA 12/17/24 14:53 IMPRESSION: 1. No evident atherosclerotic plaque with 0% stenosis of the right and left carotid bulbs relative to normal distal artery lumen diameter (NASCET criteria). 2. Unremarkable cerebral CT angiogram with no hemodynamically significant stenosis, aneurysm or thrombosis.. 3. Normal aging brain. No acute intracranial process or abnormally enhancing brain lesions. <Gerald Malloy MD - Last Filed: 12/17/24 18:50> ECG Data EKG #1: ECG completion date: 12/17/24 <Gerald Malloy MD - Last Filed: 12/17/24 18:50> ECG completion time: 14:23 <Gerald Malloy MD - Last Filed: 12/17/24 18:50> EKG Interpretation: normal rate (75), sinus rhythm, no ectopy, no ST changes, normal QRS, normal QT and NL axis <Gerald Malloy MD - Last Filed: 12/17/24 18:50> Discharge Plan Discharge Clinical Impression: Transient confusion <Елена Oliva APRN - Last Filed: 12/17/24 13:55> Patient Disposition: Home, Self-Care <Елена Oliva APRN - Last Filed: 12/17/24 13:55> Condition: Stable <Елена Oliva APRN - Last Filed: 12/17/24 13:55> Additional Instructions: You had a medical event that was likely related to accidental administration of medication but your evaluated for possible TIA/CVA. It is recommended you take a baby aspirin daily and follow up with her PCP. Return the ER if you have recurrence of symptoms, you develop chest pain with shortness of breath, you lose consciousness, or you have additional concerns. <Елена Oliva APRN - Last Filed: 12/17/24 13:55> Patient Language: Faroese <Елена Oliva APRN - Last Filed: 12/17/24 13:55> Prescriptions: New aspirin 81 mg capsule 81 mg PO DAILY Qty: 14 0RF No Action calcium carbonate-vitamin D3 600 mg-5 mcg (200 unit) tablet 1 tablet PO DAILY levothyroxine [Synthroid] 100 mcg tablet See Rx Instructions .ROUTE .COMPLEX Qty: 90 1RF Dose Instruction: TAKE 1 TABLET (100MCG) DAILY Rx Instructions: TAKE 1 TABLET (100MCG) 6 days a week and half a tablet on Sundays citalopram 20 mg tablet 20 mg PO DAILY DHEA SR. 5 mg BYMOUTH progesterone micronized 200 mg capsule 200 mg PO QHS progesterone micronized 100 mg capsule 100 mg PO QAM Rx Instructions: TAKES TOTAL OF 300 IN THE EVENING MAGNESIUM 750 mg BYMOUTH calcitriol 0.25 mcg capsule 0.25 mcg PO DAILY amoxicillin-pot clavulanate 875-125 mg tablet 1 tablet PO BID Qty: 20 0RF benzonatate 100 mg capsule 100 mg PO TID PRN (Reason: cough) Qty: 30 0RF medroxyprogesterone albuterol sulfate 90 mcg/actuation HFA aerosol inhaler 1 - 2 inh inhalation Q4-6H PRN (Reason: shortness of breath or wheezing) Qty: 8.5 0RF <Елена Oliva APRN - Last Filed: 12/17/24 13:55> Follow-up/Referrals: Clark Campos MD [Primary Care Provider] - 3 Days <Елена Oliva APRN - Last Filed: 12/17/24 13:55> Quality Stroke Scale Stroke Scale 1: Stroke scale date:: 12/17/24 <Gerald Malloy MD - Last Filed: 12/17/24 18:50> 1a Level of consciousness: alert-0 <Gerald Malloy MD - Last Filed: 12/17/24 18:50> 1b Level of consciousness questions: answers both correctly-0 <Gerald Malloy MD - Last Filed: 12/17/24 18:50> 1c Level of consciousness commands: obeys both correctly-0 <Gerald Malloy MD - Last Filed: 12/17/24 18:50> 2 Best gaze: normal-0 <Gerald Malloy MD - Last Filed: 12/17/24 18:50> 3 Visual: no visual loss-0 <Gerald Malloy MD - Last Filed: 12/17/24 18:50> 4 Facial palsy: normal-0 <Gerald Malloy MD - Last Filed: 12/17/24 18:50> 5a Motor: left arm: no drift-0 <Gerald Malloy MD - Last Filed: 12/17/24 18:50> 5b Motor: right arm: no drift-0 <Gerald Malloy MD - Last Filed: 12/17/24 18:50> 6a Motor: left leg: no drift-0 <Gerald Malloy MD - Last Filed: 12/17/24 18:50> 6b Motor: right leg: no drift-0 <Gerald Malloy MD - Last Filed: 12/17/24 18:50> 7 Limb ataxia: absent-0 <Gerald Malloy MD - Last Filed: 12/17/24 18:50> 8 Sensory: normal-0 <Gerald Malloy MD - Last Filed: 12/17/24 18:50> 9 Best language: no aphasia-0 <Gerald Malloy MD - Last Filed: 12/17/24 18:50> 10 Dysarthria: normal-0 <Gerald Malloy MD - Last Filed: 12/17/24 18:50> 11 Extinction and inattention: no abnormality-0 <Gerald Malloy MD - Last Filed: 12/17/24 18:50> Level:: 0 <Gerald Malloy MD - Last Filed: 12/17/24 18:50>
[2024-12-17 13:57] LABS: Glucose Point of Care 155 mg/dl (65-105)
[2024-12-17 14:05] LABS: Basophils Percent Auto 0.4 % (0.2-1.2); Eosinophils Absolute Auto 0.2 K/mm3 (0-0.3); Eosinophils Percent Auto 2.4 % (0-4.4); Hematocrit 42.8 % (37.0-47.0); Immature Granulocyte Absolute 0.01 K/mm3 (0.00-0.031); Immature Granulocyte Percent A 0.1 % (0-0.5); Lymphocytes Absolute Auto 2.19 K/mm3 (0.9-3.2); Lymphocytes Percent Auto 27.2 % (18.3-44.2); Mean Corpuscular Hemoglobin 30.5 pg (26-34); Mean Platelet Volume 9.7 fl (7.4-10.4); Monocytes Absolute Auto 0.5 K/mm3 (0.1-0.6); Monocytes Percent Auto 6.6 % (2.6-8.5); Neutrophils Absolute Auto 5.1 K/mm3 (1.3-6.7); Neutrophils Percent Auto 63.3 % (45.5-73.1); Platelet Count Result 328 k/mm3 (150-375); Red Blood Count 4.92 M/mm3 (4.2-5.4); Red Cell Distribution Width 12.4 % (11.5-14.5); White Blood Count 8.1 K/mm3 (4.5-10.0)
[2024-12-17 14:14] LABS: Alanine Aminotransferase 15 U/L (6-35); Albumin Level 3.6 g/dL (3.5-5.1); Alkaline Phosphatase 73 U/L (38-126); Anion Gap 9 mmol/L (4-12); Aspartate Amino Transferase 21 U/L (14-36); Bilirubin,Total 0.4 mg/dL (0.2-1.3); Blood Urea Nitrogen 32 mg/dL (7-17); Calcium 6.5 mg/dL (8.4-10.2); Carbon Dioxide 23 mmol/L (22-30); Chloride 107 mmol/L (98-107); Estimated CRCL calculation 60 ml/min; Estimated Glomerular Filt Rate > 60; Glucose 154 mg/dL (65-110); Potassium 3.3 mmol/L (3.4-5.0); Sodium 139 mmol/L (137-145)
[2024-12-17 14:15] LABS: Ethanol < 10 mg/dL (<10)
[2024-12-17 14:17] LABS: INR 1.1; Prothrombin Time 14.9 Seconds (11.1-14.7)
[2024-12-17 14:18] LABS: Partial Thromboplastin Time 25.9 Seconds (22.3-36.8)
[2024-12-17] MEDS: SODIUM CHLORIDE 0.9% IV 1,000 ML 999 ML IV CONT (14:25)
[2024-12-17 14:26] LABS: Troponin I < 0.012 ng/mL (0.000-0.034)
[2024-12-17 15:01] VITALS: BP 134/72; PULSE 70; RESP 20; O2SAT 98
[2024-12-17 15:08] LABS: Add Urine Microscopic? YES; Appearance Urine Clear (Clear); Bacteria Urine None Seen /hpf; Bilirubin Urine Negative (Negative); Blood Urine Negative (Negative); Color Urine Yellow (Yellow); Glucose Urine UA Negative (Negative); Ketones Urine Negative (Negative); Leukocyte Esterase Ur 1+ LEU/UL (Negative); Need Manual Microscopic Reviewed; Nitrate Urine Negative (Negative); Non Pathogenic Casts 0-2; Protein Urine Negative (Negative); RBC Urine 0-2 /hpf (0-2); Specific Grav Ur 1.031 (1.001-1.035); Squamous Epithelial Cell Urine None Seen /hpf (Few); Urobilinogen Urine 0.2 mg/dL (<2.0); WBC Urine 0-5 /hpf (0-3); pH Urine 6.5 (5.0-9.0)
[2024-12-17 15:16] VITALS: BP 130/70; PULSE 64; RESP 18; O2SAT 100
[2024-12-17 15:20] LABS: Thyroid Stimulating Hormone Reflex < 0.015 uIU/mL (0.465-4.68)
[2024-12-17 15:41] LABS: Amphetamine Screen Urine Negative (Negative); Barbiturate Screen Urine Negative (Negative); Benzodiazepines Screen Urine Negative (Negative); Cannabinoid Screen Urine Negative (Negative); Cocaine Screen Urine Negative (Negative); Methadone Screen Urine Negative (Negative); Opiate Screen Urine Negative (Negative); Phencyclidine Screen Urine Negative (Negative)
[2024-12-17 16:09] LABS: Free T4 Free Thyroxine Reflex 1.53 ng/dL (0.78-2.19)
[2024-12-17 16:59] LABS: Total Triiodothyronine (T3) 1.78 NG/ML (0.97-1.69)
== END 2024-12-17 16:41 | disposition home or self-care (01) ==
LOC: ANHED 14:53
PROVIDERS: Registered Nurse; Emergency Provider Emergency Medicine; PCP Family Medicine
DX: R41.0 Disorientation, unspecified (principal); N28.9 Disorder of kidney and ureter, unspecified; E89.0 Postprocedural hypothyroidism; Z85.51 Personal history of malignant neoplasm of bladder
CPT/HCPCS: 36415; 70496; 70498; 80053; 80307; 81001; 82077; 82948; 84439; 84443; 84480; 84484; 85025; 85610; 85730; 87086; 93005; 96360; 99284; J7030; Q9967

== ENCOUNTER 2025-02-05 07:41 | Outpatient (CLI) | payer OTHER, SELFPAY ==
--- NOTE | ~2025-02-05 | MM_ITS ---
EXAMINATION: MM screening [facility] BI w brinda HISTORY: Screening TECHNIQUE: Craniocaudal and mediolateral oblique 3-D tomosynthesis images were obtained and synthetic 2-D images were generated. CAD analysis was submitted and interpreted. COMPARISON: 02/21/2023 and dating back to 03/04/2017 BREAST PARENCHYMAL COMPOSITION: The breasts are heterogeneously dense, which may obscure small masses . FINDINGS: Punctate calcifications are detected bilaterally, stable and benign in appearance. Otherwise stable parenchymal pattern without suspicious microcalcifications, architectural distortion , discrete masses or significant asymmetry. IMPRESSION: 1. No mammographic/tomographic evidence of malignancy. 2. Recommend routine screening mammography in one year. BI-RADS Category 2: Benign finding(s). Reviewed, dictated and finalized at location [facility]. [facility]
--- OUTSIDE RECORDS SUMMARY | 2025-02-05 07:46 | XMS_ITS | Clinical Summary ---
Author Organization [facility] Address [address] [place] [id number] Care Team Providers Care Photo Tech Name Role Phone Lc Kurtz MD Primary Care Provider [phone] Social History Tobacco Use Types Packs/Day Years Used Date Smoking Tobacco: Never Assessed Comments Unknown Sex and Gender Information Value Date Recorded Sex Assigned at Not on file Legal Sex Female 4:21 PM CDT Gender Identity Not on file Sexual Orientation Not on file Plan of Treatment Health Maintenance Due Date Last Done Comments Cervical Cancer Screening Pa p Smear (Age 30 to 64) Every 3 Years 1968 Colorectal Cancer Screening Colonoscopy (10 Years) 1968 Annual Physical 1971 Hepatitis C 1986 DTaP, Tdap and Td Vaccines ( 1 - Tdap) 1987 Hepatitis B Vaccines (1 of 3 - 19+ 3-dose series) 1987 Cervical Cancer Screening Pa p with HPV Testing (Age 30 to 64) Every 5 Years 1998 Cervical Cancer Screening with HPV 1998 Mammogram Screening 2008 Zoster Vaccines (1 of 2) 2018 COVID-19 Vaccine (2023-2 5 season) 2024 Influenza Adult (#1) 2024 Meningococcal B Vaccine Aged Out No l onger eligible based on patient's age to complete this topic Meningococcal Vaccine Aged Out No candie gloria eligible based on patient's age to complete this topic Pneumococcal Vaccine: Pediat rics (0 to 5 Years) and At-Risk Patients (6 to 64 Years) Aged Out No longer eligible b ased on patient's age to complete this topic RSV Immunizations Under 20 Months Aged Out No longer eligible based on patient's age to complete this topic Care Teams Photo Tech Relationship Specialty Start Date End Date Lc Kurtz MD PCP - General 11/10/14
--- OUTSIDE RECORDS SUMMARY | 2025-02-05 07:46 | XMS_ITS | Patient Health Summary ---
Author Organization [facility] Address [address] [place] [address] Care Team Providers Care Value Stream Manager Name Role Phone Soila Brooks MD Primary Care Provider Note from [facility],non-owned Affiliates and Associated Physician Practices is amultiple site organization consisting of ambulatory clinics and hospital sitesin [place], [place], [place] and [place]. This disclosure is being madepursuant to the Care Everywhere program and may not contain all information available regarding this patient. Last updated 18.[facility] Social History Tobacco Use Types Packs/Day Years Used Date Smoking Tobacco: Never Assessed Sex and Gender Information Value Date Recorded Sex Assigned at Not on file Gender Identity Not on file Sexual Orientation Not on file Procedures * GROSS + MICRO EXAM(Performed 07/19/2003) Results * GROSS + MICRO EXAM (07/19/2003 6:09 PM CDT) Result CASE NUMBER [id number] Comment: ORDERING PHYSICIAN PRESLEY DUCKWORTH SPECIMEN TYPE Cervix Biopsy Date 07/20/2003 Physician Claudette Duckworth Gross Description Two specimens are received in formalin-filled containers, each labeled with the patient's name. The first container is identified as cervical biopsy and consists of two equally-sized fragments of soft white tissue, each measuring 0.3 x 0.3 x 0.3 cm. The entire specimen is submitted in a single cassette labeled A. The second container is identified as ECC . The specimen is filtered to reveal mucoid in consistency material measuring 0.2 x 0.1 x 0.1 cm. The entire specimen is submitted in a single cassette labeled B. TK/bk Microscopic Exam Sections labeled A reveals cervical fragments lined by squamous epithelium showing areas of squamous metaplasia with low grade dysplasia. The epithelium and the stroma is infiltrated with acute inflammatory cells. High grade dysplasia is not seen. Sections labeled B reveals mucoid material intermixed with a few strips of endocervical epithelium, acute inflammatory cells, mucoid material. Squamous metaplasia is seen. Dysplasia is not seen. SR/ Diagnosis I. Cervical biopsy A. Squamous intraepithelial lesion, low grade. B. Acute cervicitis II. Endocervical curettings A. Squamous metaplasia B. Acute cervicitis. SR/ Commissioning Agent [facility] Pathologist Marichuy Bertrand M.D. [place]. 07/21/2003 0902 <5> CPT code 35648 x2 MISCELLANEOUS SAMPLES / Unknown 07/19/2003 6:09 PM CDT 07/20/2003 6:10 PM CDT Historical Provider LAB - PATHOLOGY/C YTOLOGY ORDERABLES Care Teams Value Stream Manager Relationship Specialty Start Date End Date Soila Brooks MD [address] [place] [phone] PCP - General 02/03/19
--- OUTSIDE RECORDS SUMMARY | 2025-02-05 07:46 | XMS_ITS | Referral Summary ---
Author Organization [facility] Address [address] [place] [address] Care Team Providers Care Guest Service Host Name Role Phone Soila Brooks MD Primary Care Provider Source Comments [facility],non-owned Affiliates and Associated Physician Practices is amultiple site organization consisting of ambulatory clinics and hospital sitesin [place], [place] and [place]. This disclosure is being madepursuant to the Care Everywhere program and may not contain all information available regarding this patient. Last updated 18.[facility] Social History Tobacco Use Types Packs/Day Years Used Date Smoking Tobacco: Never Assessed Sex and Gender Information Value Date Recorded Sex Assigned at Not on file Gender Identity Not on file Sexual Orientation Not on file Plan of Treatment Not on file Care Teams Guest Service Host Relationship Specialty Start Date End Date Soila Brooks MD [address] [place] [phone] PCP - General 02/03/19
--- OUTSIDE RECORDS SUMMARY | 2025-02-05 07:46 | XMS_ITS | Clinical Summary ---
Author Organization [facility] Address [address] [place] [address] Care Team Providers Care Correspondence Clerk Name Role Phone Soila Brooks MD Primary Care Provider Source Comments [facility],non-owned Affiliates and Associated Physician Practices is amultiple site organization consisting of ambulatory clinics and hospital sitesin [place], [place], [place] and [place]. This disclosure is being madepursuant to the Care Everywhere program and may not contain all information available regarding this patient. Last updated 18.[facility] Social History Tobacco Use Types Packs/Day Years Used Date Smoking Tobacco: Never Assessed Sex and Gender Information Value Date Recorded Sex Assigned at Not on file Gender Identity Not on file Sexual Orientation Not on file Plan of Treatment Health Maintenance Due Date Last Done Comments COLOGUARD (AGES 45-75) - COL ON CA SCREENING 1968 COLON MONITORING 1968 COLONOSCOPY - COLON CA SCREENING 1968 CT COLONOGRAPHY - COLON CA SCREENING 1968 Colorectal Cancer Screening 1968 FIT - COLON CA SCREENING 1968 FLEX SIG - COLON CA SCREENING 1968 LIPID TESTING 1968 MAMMOGRAM 1968 PAP SMEAR 1968 HIV SCREENING 1983 HEPATITIS C SCREENING 09/19/1986 DTAP/TDAP/TD VACCINES (1 - Tdap) 1987 HEPATITIS B VACCINE (1 of 3 - 19+ 3-dose series) 1987 PNEUMOCOCCAL VACCINE 50+ (1 of 1 - PCV) 2018 ZOSTER VACCINE (1 of 2) 2018 COVID-19 VACCINE ( - 2023-2 5 season) 2024 INFLUENZA VACCINE (#1) 2024 DEPRESSION SCREENING 12/02/2024 HIB VACCINE Aged Out No longer eligi ble based on patient's age to complete this topic HPV VACCINE Aged Out No longer eligi ble based on patient's age to complete this topic MENINGOCOCCAL (Group B) VACCINE Aged Out No longer eligible based on patient's age to complete this topic MENINGOCOCCAL VACCINE Aged Out No candie gloria eligible based on patient's age to complete this topic PNEUMOCOCCAL VACCINE Aged Out No long er eligible based on patient's age to complete this topic Care Teams Correspondence Clerk Relationship Specialty Start Date End Date Soila Brooks MD [address] [place] [phone] PCP - General 02/03/19
== END 2025-02-05 07:42 | disposition home or self-care (01) ==
LOC: ANHIMG 07:43
PROVIDERS: PCP Family Medicine; Visit Provider Obstetrics & Gynecology
DX: Z12.31 Encounter for screening mammogram for malignant neoplasm of breast (principal)
CPT/HCPCS: 77063; 77067